=== PATIENT | male | born 1995 | race Caucasian/White ===

== ENCOUNTER 2016-11-12 23:01 | Emergency (ER) | payer SELFPAY ==
[~2016-11-12] VITALS: Ht 167.6 cm; Wt 79.5 kg
[2016-11-13] MEDS ORDERED: ASPIRIN 81MG TABLET PO STA (08:23)
[2016-11-13] MEDS ORDERED: NITROGLYCERIN 0.4MG TABLET SL SL PRN (08:30)
[2016-11-13 08:51] LABS: BASOPHILS % 0.8 % (0.0-2.0); EOSINOPHILS % 1.5 % (0.0-5.0); HEMOGLOBIN. 14.5 g/dL (14.0-18.0); MEAN CORPUSCULAR HEMOGLOBIN 30.7 pg (28.0-32.0); MEAN CORPUSCULAR VOLUME 88.9 fL (80.0-94.0); MEAN PLATELET VOLUME 7.7 fl (7.4-10.4); NEUTROPHILS % 49.7 % (40.0-76.0); PLATELET 349 x1000/uL (130-400); RED BLOOD CELL COUNT 4.73 mill/uL (4.7-6.1)
[2016-11-13 09:01] LABS: PARTIAL THROMBOPLASTIN TIME 29.3 sec (24.0-34.0); PROTHROMBIN TIME 10.6 sec
[2016-11-13 09:08] LABS: CARBON DIOXIDE 28 mEq/L (21-32); CHLORIDE 105 mEq/L (98-107); TROPONIN I < 0.02 ng/mL (0.00-0.04)
[2016-11-13 13:40] VITALS: BP 134/68
== END 2016-11-13 13:41 | disposition home or self-care (01) ==
LOC: ER 23:01
DX: F41.9 Anxiety disorder, unspecified (principal); R07.89 Other chest pain; F17.210 Nicotine dependence, cigarettes, uncomplicated
CPT/HCPCS: 36415; 71010; 80048; 84484; 85025; 85610; 85730; 93005; 99285; Z7610

== ENCOUNTER 2018-03-19 00:51 | Emergency (ER) | payer SELFPAY ==
[~2018-03-19] VITALS: Ht 167.6 cm; Wt 70.0 kg
[2018-03-19 02:48] LABS: CLARITY URINE CLEAR (CLEAR); COLOR URINE YELLOW (YELLOW); KETONES URINE NEGATIVE (NEGATIVE); LEUKOCYTE ESTERASE URINE NEGATIVE (NEGATIVE); NITRITE URINE NEGATIVE (NEGATIVE); OCCULT BLOOD URINE NEGATIVE (NEGATIVE); PH URINE 5.5 (4.5-8.0); PROTEIN URINE NEGATIVE (NEGATIVE); SPECIFIC GRAVITY URINE 1.018 (1.005-1.030); UROBILINOGEN URINE 0.2 E.U./dL (0.2-1.0)
[2018-03-19] MEDS ORDERED: SODIUM CHLORIDE 0.9% 1,000 ML IV ONE (06:35)
[2018-03-19] MEDS ORDERED: MORPHINE SULFATE 2 MG/ML CPJ (NOT FOR IM USE) IV ONE (06:45)
[2018-03-19 07:31] LABS: BASOPHILS % 0.3 % (0.0-2.0); EOSINOPHILS % 1.9 % (0.0-5.0); HEMATOCRIT. 41.9 % (42.0-52.0); HEMOGLOBIN. 14.2 g/dL (14.0-18.0); LYMPHOCYTES % 46.5 % (20.0-50.0); MEAN CORPUSCULAR HEMOGLOBIN 30.9 pg (28.0-32.0); MEAN CORPUSCULAR VOLUME 91.4 fL (80.0-94.0); MEAN PLATELET VOLUME 7.6 fl (7.4-10.4); MONOCYTES % 8.8 % (2.0-8.0); NEUTROPHILS % 42.5 % (40.0-76.0); PLATELET 397 x1000/uL (130-400); RED BLOOD CELL COUNT 4.58 mill/uL (4.7-6.1); RED CELL DISTRIBUTION WIDTH 13.5 % (11.6-14.6)
[2018-03-19 07:33] LABS: CHLORIDE 106 mEq/L (98-107)
[2018-03-19 07:37] LABS: PROTHROMBIN TIME 10.3 sec (9.1-11.1)
[2018-03-19 11:24] VITALS: BP 113/67
== END 2018-03-19 11:30 | disposition home or self-care (01) ==
LOC: ER 00:51
DX: R10.13 Epigastric pain (principal); R19.7 Diarrhea, unspecified; R11.10 Vomiting, unspecified
CPT/HCPCS: 36415; 76700; 80053; 81003; 82270; 83690; 85025; 85610; 87015; 87045; 87427; 87449; 89055; 96361; 96374; 99284; J2270; J7030